=== PATIENT | female | born 1950 | race Caucasian/White ===

== ENCOUNTER 2021-12-29 12:12 | Outpatient (CLI) | payer SELFPAY | END 2021-12-29 12:13 | disposition home or self-care (01) | LOC: LAB 12:12 | DX: M19.90 Unspecified osteoarthritis, unspecified site (principal); Z71.3 Dietary counseling and surveillance; R19.8 Other specified symptoms and signs involving the digestive system and abdomen | CPT/HCPCS: 36415 ==